=== PATIENT | female | born 1995 | race Caucasian/White ===

== ENCOUNTER 2017-06-03 23:18 | Emergency (ER) | payer SELFPAY ==
[2017-06-03 23:35] VITALS: BP 131/67; BMI 24.2
--- NOTE | 2017-06-04 00:48 | DR.GENAD ---
HPI - PCP Primary Care Physician: GLORIA - Complaint/Symptoms Chief Complaint Doctors Comments: Patient states that she has had anxiety for ten years or more and she gets anxious for no apparent reason. She has not been medication or evaluated for her condition. She becomes very anxious and sweaty at times and can not concentrate. Chief Complaint:: SHORT OF BREATH NAUSEATED, ANXIOUS - Source History Provided: Patient, Family Member - Mode of Arrival Mode of Arrival: Ambulatory - Timing Onset of Chief Complaint: 06/03/17 PMH - PMH Past Medical History: Yes Past Medical History Comment: HISTORY OF BLACKING OUT PER GRAND MOTHER Past Surgical History: No - Family History History of Family Medical Conditions: Yes Family Medical History: Diabetes Mellitus - Social History Does patient currently use any type of tobacco product: No Have you used tobacco products in the last 12 months: No Type of Tobacco Use: None Does any household member use tobacco: No Alcohol Use: Occasionally Do you use any recreational Drugs:: No Lives With: Family Lives Where: Home - infectious screening In the last 2 months have you had wt loss of >10#?: NO Have you had fever, night sweats or hemotysis?: No Have you traveled outside the country in the last 6 months?: No Isolation: Standard ROS - Review of Systems Eyes: No Symptoms Reported ENTM: No Symptoms Reported Respiratoy: No Symptoms Reported Cardiovascular: No Symptoms Reported Gastrointestinal/Abdominal: No Symptoms Reported Genitourinary: No Symptoms Reported Neurological: No Symptoms Reported Musculoskeletal: No Symptoms Reported Integumentary: No Symptoms Reported Hematologic/Lymphatic: No Symptoms Reported Endocrine: No Symptoms Reported Psychiatric: No Symptoms Reported All Other Systems: Reviewed and Negative PE - Vital Signs Vitals: Temperature 97.9 F Pulse Rate 96 Respiratory Rate 14 Blood Pressure 131/67 O2 Sat by Pulse Oximetry 99 - General Limitations: No Limitations General Appearance: Alert, In No Apparent Distress - Head Head Exam: Normal Inspection, Atraumatic - Eyes Eye exam: Normal Appearance, PERRL, EOMI - ENT ENT Exam: Normal Exam External Ear Exam: Normal External Inspection TM/Canal Exam: Bilateral Normal Nose Exam: Normal Nose Exam Mouth Exam: Normal Inspection Throat Exam: Normal Inspection - Neck Neck Exam: Normal Inspection, Full ROM - Chest Chest Inspection: Normal Inspection, Symmetric Chest Wall Rise - Respiratory Respiratory Exam: Normal Lung Sounds Bilat Respiratory Exam: Bilateral Clear to Auscultation - Cardiovascular Cardiovascular Exam: Regular Rate, Normal Rhythm - Abdominal Exam Abdominal Exam: Normal Inspection, Normal Bowel Sounds Abdominal Tenderness: negative: RUQ, RLQ, LUQ, LLQ, Epigastrium, Suprapubic, Diffuse, Mild, Moderate, Severe, Other - Extremities Extremities Exam: Normal Inspection, Full ROM - Back Back Exam: Normal Inspection, Full ROM - Neurologic Neurological Exam: Alert, Oriented X3, CN II-XII Intact - Psychiatric Psychiatric Exam: Normal Affect, Normal Mood - Skin Skin Exam: Warm, Dry - Diagnosis Discharge Problem: Anxiety - Discharge Plan Condition: Stable - Follow ups/Referrals Follow ups/Referrals: NFD,None [Primary Care Provider] - 3 days - Instructions
[2017-06-04] MEDS ORDERED: ATIVAN TAB 0.5 MG PO STA (00:56)
[2017-06-04] MEDS ORDERED: ATIVAN TAB 0.5 MG ONE ×2 (00:59→01:04)
== END 2017-06-04 01:10 | disposition home or self-care (01) ==
LOC: ER 23:18
DX: F41.8 Other specified anxiety disorders (principal)
CPT/HCPCS: 99282